=== PATIENT | female | born 1985 | race Caucasian/White ===

== ENCOUNTER 2025-03-01 10:39 | Outpatient (CLI) | payer BC, SELFPAY ==
--- NOTE | 2025-03-01 11:34 | XRR_ITS ---
PROCEDURE INFORMATION: Exam: XR Right Hand Exam date and time: 03/01/2025 11:38 AM Age: 39 years old Clinical indication: Pain; Hand; Bilateral; Additional info: M25.50 - pain in unspecified joint TECHNIQUE: Imaging protocol: Radiologic exam of the right hand. Views: 3 or more views. COMPARISON: No relevant prior studies available. FINDINGS: Bones/joints: Normal. Soft tissues: Normal. XR/XR hand RT min 3V* [id number] IMPRESSION: No acute findings.
--- NOTE | 2025-03-01 11:34 | XRR_ITS ---
PROCEDURE INFORMATION: Exam: XR Left Hand Exam date and time: 03/01/2025 11:35 AM Age: 39 years old Clinical indication: Pain; Hand; Bilateral; Additional info: Chronic bilateral hand pain (specifically at mcp's/pcp's); Concern for osteoathritis TECHNIQUE: Imaging protocol: Radiologic exam of the left hand. Views: 3 or more views. COMPARISON: No relevant prior studies available. FINDINGS: Bones/joints: Normal. Soft tissues: Normal. XR/XR hand LT min 3V* [id number] IMPRESSION: No acute findings.
== END 2025-03-01 10:40 | disposition home or self-care (01) ==
PROVIDERS: PCP Nurse Practitioner Family; Visit Provider Nurse Practitioner Family
DX: M79.642 Pain in left hand (principal); M79.641 Pain in right hand
CPT/HCPCS: 73130

== ENCOUNTER 2025-05-30 08:39 | Outpatient (CLI) | payer BC, SELFPAY ==
--- NOTE | 2025-05-30 08:41 | MM_ITS ---
WS: [id number] SCREENING DIGITAL BREAST TOMOSYNTHESIS MAMMOGRAM WITH CAD HISTORY: ANNUAL SCREENING COMPARISON: None available. Bilateral CC and MLO with tomosynthesis and synthetic mammography submitted. Computer aided detection analyzed. Breast composition: The breasts are heterogeneously dense, which may obscure small masses. Irregular high density mass in the superior posterior LEFT breast seen only on the MLO projection. Mass measures 6 x 6 mm and is probably just lateral to the nipple line in the upper outer quadrant near the 12-1 o'clock. Further evaluation is necessary. No suspicious grouping of calcifications. Benign calcification in the lateral LEFT breast. RIGHT breast is negative. MM/MM [facility] BI tomosynthesis [id number] IMPRESSION: BI-RADS: 0 - Incomplete: Need additional imaging evaluation FOLLOW UP: Need Additional Imaging LEFT breast: Spot compression views (exaggerated lateral CC and MLO). True ML. Ultrasound to follow if abnormality persists.
== END 2025-05-30 08:40 | disposition home or self-care (01) ==
LOC: RAD 08:40
PROVIDERS: PCP Nurse Practitioner Family; Visit Provider Nurse Practitioner Family
DX: Z12.31 Encounter for screening mammogram for malignant neoplasm of breast (principal); R92.333 Mammographic heterogeneous density, bilateral breasts; N63.21 Unspecified lump in the left breast, upper outer quadrant; R92.1 Mammographic calcification found on diagnostic imaging of breast
CPT/HCPCS: 77063; 77067

== ENCOUNTER → 2025-06-04 11:09 | Outpatient (BNVA) | payer BC, SELFPAY | PROVIDERS: PCP Nurse Practitioner Family; Visit Provider Nurse Practitioner Family | DX: Z78.9 Other specified health status (principal) | CPT/HCPCS: 87070; 87205; 87624 ==

== ENCOUNTER 2025-06-05 12:46 | Outpatient (CLI) | payer BC, SELFPAY ==
--- NOTE | 2025-06-05 12:45 | MM_ITS ---
WS: [id number] ADDITIONAL VIEWS LEFT MAMMOGRAM WITH DIGITAL BREAST TOMOSYNTHESIS. LEFT breast ultrasound, limited. HISTORY: R92.8 - Other abnormal and inconclusive findings on diagn... COMPARISON: 05/30/2025 Spot compression views LEFT breast in CC, MLO projections and true ML submitted with digital breast tomosynthesis and SM. Breast composition: The breasts are heterogeneously dense, which may obscure small masses. The asymmetry persists in the posterior superior LEFT breast near the 12-1 o'clock axis. Ultrasound will be performed. There is a well-circumscribed ovoid mass measuring 10 x 10 x 13 mm in the lateral LEFT breast near 3:00. Ultrasound to be performed. LEFT breast ultrasound, limited. Well-circumscribed hypoechoic mass LEFT breast at 1:00, 1 cm from the nipple measures 1.5 x 1.2 x 0.5 cm. This is probably a fibroadenoma or small lymph node. There is an additional hypoechoic mass measuring 0.5 x 0.5 x 0.5 cm at 3:00, 2 cm the nipple which is probably a minimally complex cyst. MM/MM dia LT tomosynthesis [id number] IMPRESSION: BI-RADS: 3 - Probably Benign FOLLOW UP: 6 Month Follow-up Recommend diagnostic LEFT mammogram in 6 months and possible ultrasound to reev aluate the LEFT breast asymmetries.
--- NOTE | 2025-06-05 13:15 | US_ITS ---
WS: [id number] ADDITIONAL VIEWS LEFT MAMMOGRAM WITH DIGITAL BREAST TOMOSYNTHESIS. LEFT breast ultrasound, limited. HISTORY: R92.8 - Other abnormal and inconclusive findings on diagn... COMPARISON: 05/30/2025 Spot compression views LEFT breast in CC, MLO projections and true ML submitted with digital breast tomosynthesis and SM. Breast composition: The breasts are heterogeneously dense, which may obscure small masses. The asymmetry persists in the posterior superior LEFT breast near the 12-1 o'clock axis. Ultrasound will be performed. There is a well-circumscribed ovoid mass measuring 10 x 10 x 13 mm in the lateral LEFT breast near 3:00. Ultrasound to be performed. LEFT breast ultrasound, limited. Well-circumscribed hypoechoic mass LEFT breast at 1:00, 1 cm from the nipple measures 1.5 x 1.2 x 0.5 cm. This is probably a fibroadenoma or small lymph node. There is an additional hypoechoic mass measuring 0.5 x 0.5 x 0.5 cm at 3:00, 2 cm the nipple which is probably a minimally complex cyst. US/US breast LT limited* [id number] IMPRESSION: BI-RADS: 3 - Probably Benign FOLLOW UP: 6 Month Follow-up Recommend diagnostic LEFT mammogram in 6 months and possible ultrasound to reev aluate the LEFT breast asymmetries.
--- NOTE | 2025-06-05 17:45 | USR_ITS ---
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 Menstruation abnormalities; Excessive menstruation; Additional info: N92.1 - excessive and frequent menstruation with irregula. . . TECHNIQUE: Imaging protocol: Real-time complete transabdominal and transvaginal pelvic ultrasound (non-obstetric) with image documentation. Transvaginal imaging was used for better evaluation of the endometrium, adnexa, and/or cervix. Real-time duplex ultrasound scan of the arterial and venous flow of the ovaries with B-mode, color Doppler flow and spectral waveform analysis. Duplex exam was performed to evaluate for torsion and other vascular conditions. COMPARISON: No relevant prior studies available. FINDINGS: Uterus: Anteverted uterus. No fibroids demonstrated. Endometrial thickness measures 11 mm, within normal limits for a premenopausal patient. No increased vascularity or focal endometrial lesions demonstrated. Multiple cervical nabothian cysts. Right ovary/adnexa: Right ovary measures 3.1 x 3 x 1.9 cm, volume 9 cc. Simple appearing right ovarian cyst measuring up to 3 cm, most likely a dominant follicle. Unremarkable arterial and venous Doppler waveforms in the ovary. No findings to suggest ovarian torsion at this time. Left ovary/adnexa: Left ovary measures 2 x 1.6 x 1.6 cm, volume 2.9 cc. Unremarkable size and appearance. Unremarkable arterial and venous Doppler waveforms in the ovary. No findings to suggest ovarian torsion at this time. Intraperitoneal space: Small amount of free fluid, which can be physiologic. Urinary bladder: Grossly unremarkable. US/US pelvic complete* [id number] IMPRESSION: 1. Endometrial thickness measures 11 mm, within normal limits for a premenopausal patient. No increased vascularity or focal endometrial lesions identified. No uterine fibroids demonstrated. 2. Right ovarian dominant follicle measuring up to 3 cm. Ovaries otherwise appear unremarkable with normal bilateral ovarian blood flow demonstrated.
== END 2025-06-05 12:47 | disposition home or self-care (01) ==
PROVIDERS: PCP Nurse Practitioner Family; Visit Provider Nurse Practitioner Family
DX: R92.8 Other abnormal and inconclusive findings on diagnostic imaging of breast (principal); N92.1 Excessive and frequent menstruation with irregular cycle; R92.332 Mammographic heterogeneous density, left breast; N64.89 Other specified disorders of breast; N63.21 Unspecified lump in the left breast, upper outer quadrant; N63.25 Unspecified lump in the left breast, overlapping quadrants; N88.8 Other specified noninflammatory disorders of cervix uteri; N83.291 Other ovarian cyst, right side
CPT/HCPCS: 76642; 76856; 77061; G0279